=== PATIENT | female | born 1960 | race Caucasian/White ===

== ENCOUNTER 2018-06-03 13:58 | Emergency (ER) | payer OTHER ==
--- NOTE | 2018-06-03 14:09 | PDOC ---
History of Present Illness - General History Source: Patient Exam Limitations: No Limitations - History of Present Illness Initial Comments: 06/03/18 14:29 The patient is a 57-year-old female with past medical history significant for metastatic breast cancer with liver metastasis (on chemo) presents to the emergency department with nose bleeding. The patient presents with epistaxis from both nares wince early this morning. The patient reports using ice and tissue compress to help alleviate the bleeding, without relief, denies any modifying factor that aggravates or alleviates the bleeding. The patient states she is currently on chemo, states during the 2nd course of chemo patient was told she had oral thrush. Denies any difficulty breathing, nausea or vomiting. Allergies: NKDA Social history: No past of present use of tobacco, alcohol or recreational drug use. Surgical history: None reported. PCP: None reported. 06/03/18 16:27 <Lola Doty - Last Filed: 06/03/18 16:27> <Darlene Schuler - Last Filed: 06/03/18 16:29> - General Chief Complaint: Nasal Bleeding Stated Complaint: NOSE BLEED Time Seen by Provider: 06/03/18 14:09 Past History <Lola Doty - Last Filed: 06/03/18 16:27> <Darlene Schuler - Last Filed: 06/03/18 16:29> - Past Medical History Allergies/Adverse Reactions: Allergies Allergy/AdvReac Type Severity Reaction Status Date / Time No Known Allergies Allergy Verified 06/03/18 13:59 Home Medications: Ambulatory Orders Anastrozole [Arimidex -] 1 mg PO DAILY 06/03/18 Atenolol/Chlorthalidone [Atenolol-Chlorthalidone 50-25] 1 each PO DAILY Duloxetine HCl 30 mg PO DAILY 06/03/18 Paclitaxel [Taxol] 0 mg IV ASDIR 06/03/18 Palbociclib [Ibrance] 125 mg PO DAILY 06/03/18 Potassium Chloride [Klor-Con 10] 10 meq PO BID 06/03/18 Ropinirole HCl [Ropinirole ER] 2 mg PO HS 06/03/18 Topiramate 200 mg PO HS 06/03/18 Zolpidem Tartrate 10 mg PO HS 06/03/18 traZODone HCL [Trazodone HCl] 100 mg PO HS 06/03/18 Review of Systems - Review of Systems Comments:: 06/03/18 14:23 GENERAL/CONSTITUTIONAL: No fever or chills. No weakness. HEAD, EYES, EARS, NOSE AND THROAT: (+) nose bleeding. No change in vision. No ear pain or discharge. No sore throat. CARDIOVASCULAR: No chest pain or shortness of breath. RESPIRATORY: No cough, wheezing, or hemoptysis. GASTROINTESTINAL: No nausea, vomiting, diarrhea or constipation. GENITOURINARY: No dysuria, frequency, or change in urination. MUSCULOSKELETAL: No joint or muscle swelling or pain. No neck or back pain. SKIN: No rash NEUROLOGIC: No headache, vertigo, loss of consciousness, or change in strength/ sensation. ENDOCRINE: No increased thirst. No abnormal weight change. HEMATOLOGIC/LYMPHATIC: No anemia, easy bleeding, or history of blood clots. ALLERGIC/IMMUNOLOGIC: No hives or skin allergy. 06/03/18 16:27 <Lola Doty - Last Filed: 06/03/18 16:27> *Physical Exam - Physical Exam Comments: GENERAL: Awake, alert, and fully oriented, in no acute distress HEAD: No signs of trauma EYES: PERRLA, EOMI, sclera anicteric, conjunctiva clear ENT: Auricles normal inspection, hearing grossly normal, oropharynx clear without exudates. Moist mucosa. +Friable tissue to the L nasal septum. + Pinpoints of blood, but not actively bleeding. R nare with mild oozing of blood , no obvious source. EXTREMITIES: Normal range of motion, no edema. No clubbing or cyanosis. No cords, erythema, or tenderness NEUROLOGICAL: Cranial nerves II through XII grossly intact. Normal speech, normal gait SKIN: Warm, Dry, normal turgor, no rashes or lesions noted. <Darlene Schuler - Last Filed: 06/03/18 16:29> Medical Decision Making - Medical Decision Making 06/03/18 14:14 Patient was applying ice and placing tissues up her nose prior to arrival. I instructed her to hold external pressure on the nares with gauze to try to stop the bleeding. If it does not stop, will consider packing placement (will try to avoid this as she is immunocompromised). 06/03/18 14:41 Bleeding has resolved. Will monitor in ED to be sure it does not restart. 06/03/18 15:01 Bleeding has not restarted. Will DC home. <Darlene Schuler - Last Filed: 06/03/18 16:29> *DC/Admit/Observation/Transfer - Attestations Scribe Attestion: 06/03/18 14:23 Documentation prepared by Lola Doty, acting as medical sales specialist for Darlene Schuler MD. <Lola Doty - Last Filed: 06/03/18 16:27> - Discharge Dispostion Decision to Admit order: No <Darlene Schuler - Last Filed: 06/03/18 16:29> Diagnosis at time of Disposition: Epistaxis - Discharge Dispostion Disposition: HOME Condition at time of disposition: Stable - Patient Instructions Printed Discharge Instructions: DI for Nosebleed
[2018-06-03 14:25] VITALS: BP 115/67; PULSE 75; TEMP 99.2; BMI 44.9
== END 2018-06-03 15:39 | disposition home or self-care (01) ==
LOC: FER 13:58
DX: R04.0 Epistaxis (principal); Z92.21 Personal history of antineoplastic chemotherapy; Z85.3 Personal history of malignant neoplasm of breast
CPT/HCPCS: 99281-25